=== PATIENT | female | born 1975 | race Caucasian/White ===

== ENCOUNTER → 2022-01-30 | Outpatient (CLI) | payer BC ==
[~2022-01-30] MED LIST: CITALOPRAM HBR20 MG PO; LORTAB 5-325 M1 EACH PO
== END ==
LOC: CT 13:59
DX: R31.0 Gross hematuria (principal); K76.0 Fatty (change of) liver, not elsewhere classified; R93.3 Abnormal findings on diagnostic imaging of other parts of digestive tract
CPT/HCPCS: Q9967